=== PATIENT | male | born 1935 | race Caucasian/White ===

== ENCOUNTER 2018-06-25 23:13 | Inpatient (IN) | payer MEDICARE, OTHER ==
[2018-06-26 00:45] LABS: CKMB 3.8 ng/mL (0-6.6)
[2018-06-26 03:39] LABS: Troponin I 0.092 ng/mL (< 0.028)
[2018-06-26] MEDS ORDERED: Acetaminophen 325 MG TAB PO PRN (05:24)
[2018-06-26] MEDS ORDERED: HumaLOG 300 UNITS/3 ML VIAL SC PRN (05:24)
[2018-06-26] MEDS ORDERED: Ondansetron PF 4 MG/2 ML Vial IVP PRN (05:24)
[2018-06-26] MEDS ORDERED: hydrALAZINE 20 MG/ML VIAL SLOW IVP PRN (05:24)
[2018-06-26] MEDS ORDERED: Dextrose 50% Abboject 50 ML SYRINGE SLOW IVP PRN (05:24)
[2018-06-26] MEDS ORDERED: Ondansetron ODT 4 MG TAB PO PRN (05:24)
[2018-06-26] MEDS ORDERED: Dextrose 5% in Water 1,000 ML IV PRN (05:24)
[2018-06-26] MEDS ORDERED: Vancomycin HCl 1.25 GM in Sodium Chloride 0.9% 250 ML 250 ML IVPB SCH (06:00)
[2018-06-26] MEDS: cefTRIAXone\\ROCEPHIN 1 GM in Sodium Chloride 0.9% 100 ML IVPB SCH (06:03)
[2018-06-26] MEDS: Sodium Chloride 0.9% 1,000 ML IV SCH ×2 (06:03→21:08)
--- NOTE | 2018-06-26 07:06 | HP ---
PRIMARY CARE PHYSICIAN: Qamar Taylor MD CHIEF COMPLAINT: Altered mental status. HISTORY OF PRESENT ILLNESS: The history of present illness is very limited as the patient does not remember much about the situations, which brought him to the hospital and there is currently no family at the bedside. Mr. Waterman is an 83-year-old gentleman, who has a history of hypertension, coronary artery disease, and diabetes. He apparently was found to be altered by his daughter. The patient had called the daughter and he was confused. He apparently had told his daughter that his late was home and he was taken to the emergency room in [place] and lab work was done and it was found that his creatinine was elevated as well as his troponin and he was sent to our facility for further evaluation. Currently, the patient is back to his baseline. He is alert and oriented to person, place, and time. He says he does not really remember what happened earlier, but says that ever since his , he has been "having a hard time." He also says that he believes this is the real crux of his problem. He denies having any chest pain or shortness of breath. No fevers. No chills. No cough. No congestion. No nausea. No vomiting. He denies any abdominal pain, but he does live alone. REVIEW OF SYSTEMS: All systems were reviewed and are negative except for that mentioned in the history of present illness. PAST MEDICAL HISTORY: Significant for coronary artery disease, hypertension, and diabetes. PAST SURGICAL HISTORY: He has had bypass surgery x2 as well as 2 back surgeries. ALLERGIES: NO KNOWN DRUG ALLERGIES. SOCIAL HISTORY: He is a former smoker. He occasionally drinks alcohol. He does continue to dip snuff. He is . FAMILY HISTORY: There is a strong history of coronary artery disease in the family and brother had Hodgkin's lymphoma. CURRENT MEDICATIONS: Include; 1. Metformin 500 mg 3 times a day. 2. Ramipril 5 mg daily. 3. Hydrochlorothiazide 25 mg daily. 4. Aspirin 81 mg daily. 5. Atorvastatin 40 mg daily. 6. Carvedilol 6.25 mg once a day. 7. Isosorbide mononitrate 30 mg daily. 8. Venlafaxine 75 mg daily. 9. Tylenol as needed. PHYSICAL EXAMINATION: GENERAL: He is alert and oriented. He appears to be in no acute distress. He is well developed and well nourished. VITAL SIGNS: Blood pressure was 205/75, heart rate 78, respiratory rate of 16, and temperature is 97.4. HEENT: His pupils are equal, round, and reactive to light. Extraocular muscles are intact. His sclerae are anicteric. Throat, no erythema, no exudates. He is essentially edentulous. He only has several teeth in lower jaw. NECK: There is no adenopathy. No bruits. LUNGS: Clear to auscultation. There are no wheezing, no rales, no rhonchi. CARDIOVASCULAR: He has a normal S1 and S2. There is no S3 or S4. No murmurs, clicks, or rubs. ABDOMEN: Soft, nontender, and nondistended. Positive for bowel sounds. No rebound. No guarding. EXTREMITIES: There is no edema. No calf tenderness. No joint effusions. NEUROLOGIC: The exam is grossly nonfocal. SKIN AND INTEGUMENT: There is no significant skin changes or rash. LABORATORY DATA: His white blood cell count was elevated at 15.1, hemoglobin 14.8, hematocrit is 45.1, and platelet count is 228. Sodium 132, potassium 4.2, chloride is 101, CO2 of 17, BUN 40, creatinine 1.97, and glucose is 143. Lactic acid was 3.8. ASSESSMENT: This is an 83-year-old gentleman, who was brought to the hospital due to altered mental status. He also has an elevated white blood cell count as well as a creatinine and his lactic acid is elevated. He does not have a clear source of infection with a clear chest x-ray and his urine is essentially clear and he has no symptoms. It is possible that this may reflect volume depletion only. 1. Metabolic encephalopathy likely secondary to acute kidney injury. For this, we will place him on gentle hydration. Check his urine electrolytes and re-evaluate after hydration. 2. Possible sepsis. We will continue empiric IV antibiotics until his culture results are back. 3. History of coronary artery disease. Clinically, this appears to be stable. We will continue to trend his cardiac enzymes. I will place him on aspirin and nitrates as tolerated. 4. Diabetes mellitus. We will hold off on metformin and place him on a sliding scale only for now in the event that he needs further cardiac workup. 5. Regarding his hypertension, he will be placed on p.r.n. medications due to the acute kidney injury. We will hold the ramipril and the hydrochlorothiazide and restart these once his renal function improves. Job ID: [id number]
[2018-06-26] MEDS ORDERED: Aspirin 325 MG TAB ONE (08:41)
[2018-06-26] MEDS ORDERED: Nitroglycerin 2% Ointment 1 INCH/1 GM Packet ONE (08:41)
[2018-06-26] MEDS: Aspirin 325 mg Enteric Coated Tablet PO SCH (08:48)
[2018-06-26] MEDS: Nitroglycerin 2% Ointment 1 INCH/1 GM Packet TOP SCH ×3 (08:48→20:56)
[2018-06-26] MEDS ORDERED: Vancomycin HCl 1 GM in Premix Bag 1 BAG IVPB SCH (09:00)
[2018-06-26] MEDS: Heparin 5,000 UNITS/ML VIAL SC SCH ×3 (10:22→20:56)
--- NOTE | 2018-06-26 11:07 | PDOC.PN ---
- Subjective Encounter Start Date: 06/26/18 Encounter Start Time: 11:05 Patient seen and examined, states he feels much better now, is sad he lost his recently, states he will likely go live with his son once he's discharged. Patient seen and examined in the ER, no new issues overnight, all questions answered, no family at bedside. - Objective Additional Labs: Accuchecks 06/26/18 07:47 POC Glucose 91 Phys Exam - Physical Examination Constitutional: NAD HEENT: PERRLA, moist MMs, sclera anicteric Neck: no nodes, no JVD, supple Respiratory: no wheezing, no rales, no rhonchi Cardiovascular: RRR, no significant murmur, no rub Gastrointestinal: soft, non-tender, no distention Musculoskeletal: no edema, pulses present Dx/Plan (1) Altered mental status Code(s): R41.82 - ALTERED MENTAL STATUS, UNSPECIFIED Status: Acute (2) Elevated troponin Code(s): R74.8 - ABNORMAL LEVELS OF OTHER SERUM ENZYMES Status: Acute (3) Acute renal failure Status: Acute (4) Leukocytosis Code(s): D72.829 - ELEVATED WHITE BLOOD CELL COUNT, UNSPECIFIED Status: Acute - Plan * admit to medicine team, telemetry obs * will check infectious work up for leukocytosis * cont abx for now, likely culprit may be a combination of sadness over recent loss of his as well as a possible UTI? \ * trend troponins * possible DC in AM if work up negative, WBC going down and patient feeling well , will DC with PO abx * case and plan d/w patient at length, he understood and agreed with this plan.
[2018-06-26 12:21] VITALS: BMI 23.3
[2018-06-26 15:10] LABS: Troponin I 0.102 ng/mL (< 0.028)
[2018-06-26 15:58] LABS: Creatinine, Urine 70.17 mg/dL (63-166)
[2018-06-26] MEDS: Venlafaxine HCl 37.5 MG TAB PO SCH (20:55)
[2018-06-26 23:29] LABS: Troponin I 0.087 ng/mL (< 0.028)
[2018-06-27] MEDS: cefTRIAXone\\ROCEPHIN 1 GM in Sodium Chloride 0.9% 100 ML IVPB SCH (04:54)
[2018-06-27] MEDS: Nitroglycerin 2% Ointment 1 INCH/1 GM Packet TOP SCH ×3 (04:55→21:52)
[2018-06-27 04:57] LABS: #Eosinphils 0.2 thou/uL (0.0-0.7); #Lymphocytes 1.2 thou/uL (1.20-3.40); #Neutrophils 5.2 thou/uL (1.40-6.50); %Basophils 0.1 % (0.0-1.0); %Lymphocytes 15.5 % (21.0-51.0); %Monocytes 13.1 % (0.0-10.0); %Neutrophils 68.3 % (42.0-75.0); Hemoglobin 11.9 g/dL (14.0-18.0); Mean Corpuscular Volume 96.8 fL (78.0-98.0); Mean Platelet Volume 8.1 fL (7.4-10.4); Platelet Count 182 thou/uL (130-400); RBC Distribution Width 11.5 % (11.5-14.5); White Blood Cell (WBC) Count 7.7 thou/uL (4.8-10.8)
[2018-06-27 05:16] LABS: Anion Gap 12 mmol/L (10-20); BUN (Urea Nitrogen) 25 mg/dL (8.4-25.7); Calc. Creatinine Clearance 45 mL/min (70-130); Calcium 8.9 mg/dL (7.8-10.44); Carbon Dioxide 27 mmol/L (23-31); Cardiac Risk 3.5 (Less than 4.5); Chloride 106 mmol/L (98-107); Cholesterol 92 mg/dl (< 200 Desired); Estimated GFR-MDRD 56; Glucose 123 mg/dL (83-110); HDL Cholesterol 26 mg/dL (>60 Neg Risk); LDL Cholesterol, Calculated 52 mg/dL; Potassium 4.2 mmol/L (3.5-5.1); Sodium 141 mmol/L (136-145); Triglycerides 69 mg/dL (Less than 150)
[2018-06-27 05:18] LABS: Vancomycin, Random 13.4 ug/mL (See Comment)
[2018-06-27] MEDS: Hydrochlorothiazide 25 MG TAB PO SCH (08:43)
[2018-06-27] MEDS: Clopidogrel Bisulfate 75 MG TAB PO SCH (08:44)
[2018-06-27] MEDS: Metoprolol Tartrate 50 MG TAB PO SCH (08:44)
[2018-06-27] MEDS: Vancomycin HCl 1 GM in Premix Bag 1 BAG IVPB SCH (08:45)
[2018-06-27] MEDS: Heparin 5,000 UNITS/ML VIAL SC SCH ×3 (08:48→21:52)
[2018-06-27] MEDS: Aspirin 81 mg Enteric Coated Tablet PO SCH (08:52)
[2018-06-27] MEDS: Aspirin 325 mg Enteric Coated Tablet PO SCH (09:00)
--- NOTE | 2018-06-27 12:35 | PDOC.PN ---
- Subjective Encounter Start Date: 06/27/18 Encounter Start Time: 12:33 Patient seen and examined, family at bedside, all questions answered. - Objective Vital Signs & Weight: Vital Signs (12 hours) Temp Pulse Resp BP BP Pulse Ox 06/27/18 08:43 188/79 H 06/27/18 08:00 97.3 F L 71 20 188/79 H 95 06/27/18 05:04 87 195/84 H 06/27/18 04:25 97.2 F L 77 16 186/74 H 96 Weight Weight 154 lb 5 oz I&O: 06/26/18 06/27/18 06/28/18 06:59 06:59 06:59 Intake Total 2195 Output Total 425 Balance 1770 Result Diagrams: 06/27/18 04:25 06/27/18 04:25 Additional Labs: Accuchecks 06/27/18 06/27/18 10:35 05:28 POC Glucose 261 H 121 H Phys Exam - Physical Examination Constitutional: NAD HEENT: PERRLA, moist MMs, sclera anicteric Neck: no nodes, no JVD, supple Respiratory: no wheezing, no rales, no rhonchi sinus tach +murmur Gastrointestinal: soft, non-tender, no distention Musculoskeletal: pulses present, edema present (trace) Dx/Plan (1) Altered mental status Code(s): R41.82 - ALTERED MENTAL STATUS, UNSPECIFIED Status: Acute (2) Elevated troponin Code(s): R74.8 - ABNORMAL LEVELS OF OTHER SERUM ENZYMES Status: Acute (3) Acute renal failure Status: Acute (4) Leukocytosis Code(s): D72.829 - ELEVATED WHITE BLOOD CELL COUNT, UNSPECIFIED Status: Acute - Plan * patient doing well, slowly improving * will consult PT for now * case d/w patient's daughter who has discussed with [facility], they' re wanting to send patient to rehab over there on friday * will call PT for now * continue current medical management * DC to rehab once arrangemets made * case and plan d/w patient and daughter at length, they understand and agree with this plan.
[2018-06-27] MEDS: HumaLOG 300 UNITS/3 ML VIAL SC PRN (13:10)
[2018-06-27] MEDS: Venlafaxine HCl 37.5 MG TAB PO SCH ×2 (13:22→13:27)
[2018-06-27] MEDS: Sodium Chloride 0.9% 1,000 ML IV SCH (20:33)
[2018-06-28] MEDS: Nitroglycerin 2% Ointment 1 INCH/1 GM Packet TOP SCH ×2 (06:01→15:02)
[2018-06-28] MEDS: cefTRIAXone\\ROCEPHIN 1 GM in Sodium Chloride 0.9% 100 ML IVPB SCH (06:01)
[2018-06-28 06:43] LABS: #Basophils 0.1 thou/uL (0.0-0.2); #Eosinphils 0.3 thou/uL (0.0-0.7); #Lymphocytes 1.5 thou/uL (1.20-3.40); #Monocytes 1.1 thou/uL (0.11-0.59); %Basophils 0.6 % (0.0-1.0); %Eosinophils 3.3 % (0.0-10.0); %Lymphocytes 16.3 % (21.0-51.0); %Monocytes 12.7 % (0.0-10.0); %Neutrophils 67.2 % (42.0-75.0); Hemoglobin 11.3 g/dL (14.0-18.0); Mean Corpuscular HGB CONC 33.4 g/dL (32.0-36.0); Mean Corpuscular Hemoglobin 32.7 pg (27.0-31.0); Mean Platelet Volume 8.2 fL (7.4-10.4); Platelet Count 186 thou/uL (130-400); RBC Distribution Width 11.7 % (11.5-14.5); Red Blood Cell (RBC) Count 3.45 mill/uL (4.70-6.10); White Blood Cell (WBC) Count 8.9 thou/uL (4.8-10.8)
[2018-06-28 07:06] LABS: Anion Gap 13 mmol/L (10-20); BUN (Urea Nitrogen) 19 mg/dL (8.4-25.7); Calc. Creatinine Clearance 55 mL/min (70-130); Calcium 8.5 mg/dL (7.8-10.44); Carbon Dioxide 23 mmol/L (23-31); Chloride 106 mmol/L (98-107); Estimated GFR-MDRD 70; Glucose 126 mg/dL (83-110); Potassium 3.5 mmol/L (3.5-5.1); Sodium 138 mmol/L (136-145)
[2018-06-28] MEDS: Vancomycin HCl 1 GM in Premix Bag 1 BAG IVPB SCH (08:43)
[2018-06-28] MEDS: Heparin 5,000 UNITS/ML VIAL SC SCH ×3 (08:44→20:45)
[2018-06-28] MEDS: Sodium Chloride 0.9% 10 ML ONE (08:44)
[2018-06-28] MEDS: Aspirin 81 mg Enteric Coated Tablet PO SCH (08:45)
[2018-06-28] MEDS: Hydrochlorothiazide 25 MG TAB PO SCH (08:45)
[2018-06-28] MEDS: Clopidogrel Bisulfate 75 MG TAB PO SCH (08:45)
[2018-06-28] MEDS: Metoprolol Tartrate 50 MG TAB PO SCH (08:45)
[2018-06-28] MEDS: Aspirin 325 mg Enteric Coated Tablet PO SCH (09:15)
--- NOTE | 2018-06-28 12:21 | PDOC.PN ---
- Subjective Encounter Start Date: 06/28/18 Encounter Start Time: 12:20 Patient seen and examined, no new issues, per nursing staff patient has had 3-4 bouts of diarrhea. - Objective Vital Signs & Weight: Vital Signs (12 hours) Temp Pulse Resp BP BP Pulse Ox 06/28/18 10:05 165/72 H 06/28/18 08:33 96.8 F L 70 19 186/82 H 98 06/28/18 04:00 97.7 F 67 18 145/66 H 94 L Weight Weight 155 lb 3 oz I&O: 06/27/18 06/28/18 06/29/18 06:59 06:59 06:59 Intake Total 2195 870 Output Total 425 800 Balance 1770 70 Result Diagrams: 06/28/18 06:03 06/28/18 06:03 Additional Labs: Accuchecks 06/28/18 06/27/18 06/27/18 05:35 20:53 16:54 POC Glucose 144 H 166 H 117 H Phys Exam - Physical Examination Constitutional: NAD HEENT: PERRLA, moist MMs, sclera anicteric Neck: no nodes, no JVD, supple Respiratory: no wheezing, no rales, no rhonchi Cardiovascular: RRR, no significant murmur, no rub Gastrointestinal: soft, non-tender, no distention Musculoskeletal: pulses present, edema present Dx/Plan (1) Altered mental status Code(s): R41.82 - ALTERED MENTAL STATUS, UNSPECIFIED Status: Acute (2) Elevated troponin Code(s): R74.8 - ABNORMAL LEVELS OF OTHER SERUM ENZYMES Status: Acute (3) Acute renal failure Status: Acute (4) Leukocytosis Code(s): D72.829 - ELEVATED WHITE BLOOD CELL COUNT, UNSPECIFIED Status: Acute - Plan * DC abx for now both vanc and rocephin, no WBC no fevers, C-diff ordered for diarreha * plan for now is to DC patient to [facility] in AM, daughter works there, for rehab purposes * no other changes in plan of care otherwise * BP stable * labs in AM
[2018-06-29 05:05] LABS: #Eosinphils 0.2 thou/uL (0.0-0.7); #Lymphocytes 1.1 thou/uL (1.20-3.40); #Monocytes 0.9 thou/uL (0.11-0.59); #Neutrophils 5.7 thou/uL (1.40-6.50); %Basophils 0.5 % (0.0-1.0); %Eosinophils 2.2 % (0.0-10.0); %Lymphocytes 13.9 % (21.0-51.0); %Monocytes 11.1 % (0.0-10.0); %Neutrophils 72.4 % (42.0-75.0); Hemoglobin 11.3 g/dL (14.0-18.0); Mean Corpuscular Hemoglobin 32.4 pg (27.0-31.0); Mean Corpuscular Volume 95.3 fL (78.0-98.0); Mean Platelet Volume 8.5 fL (7.4-10.4); Platelet Count 188 thou/uL (130-400); RBC Distribution Width 11.5 % (11.5-14.5); Red Blood Cell (RBC) Count 3.49 mill/uL (4.70-6.10); White Blood Cell (WBC) Count 7.9 thou/uL (4.8-10.8)
[2018-06-29 05:30] LABS: Anion Gap 13 mmol/L (10-20); BUN (Urea Nitrogen) 15 mg/dL (8.4-25.7); Calc. Creatinine Clearance 44 mL/min (70-130); Calcium 8.9 mg/dL (7.8-10.44); Carbon Dioxide 25 mmol/L (23-31); Chloride 103 mmol/L (98-107); Estimated GFR-MDRD 55; Glucose 117 mg/dL (83-110); Potassium 3.4 mmol/L (3.5-5.1); Sodium 138 mmol/L (136-145)
[2018-06-29 08:28] LABS: Vancomycin, Trough 13.8 ug/mL
[2018-06-29] MEDS ORDERED: Ramipril 5 MG CAP PO SCH (09:00)
[2018-06-29] MEDS: Aspirin 325 mg Enteric Coated Tablet PO SCH (09:29)
[2018-06-29] MEDS: Metoprolol Tartrate 50 MG TAB PO SCH (09:29)
[2018-06-29] MEDS: Clopidogrel Bisulfate 75 MG TAB PO SCH ×2 (09:29→09:39)
[2018-06-29] MEDS: Aspirin 81 mg Enteric Coated Tablet PO SCH (09:29)
[2018-06-29] MEDS: Hydrochlorothiazide 25 MG TAB PO SCH (09:29)
[2018-06-29] MEDS: Heparin 5,000 UNITS/ML VIAL SC SCH ×3 (09:43→21:37)
[2018-06-29] MEDS: Sodium Chloride 0.9% 10 ML ONE (09:44)
--- NOTE | 2018-06-29 10:07 | PDOC.PN ---
- Subjective Encounter Start Date: 06/29/18 Encounter Start Time: 10:02 Patient seen and examined, daughter at bedside, no new issues, all questions answered. - Objective Vital Signs & Weight: Vital Signs (12 hours) Temp Pulse Resp BP BP BP Pulse Ox 06/29/18 09:28 188/79 H 06/29/18 07:47 97.5 F L 66 16 195/81 H 100 06/28/18 23:54 156/68 H Weight Weight 155 lb 9.6 oz I&O: 06/28/18 06/29/18 06/30/18 06:59 06:59 06:59 Intake Total 870 1380 Output Total 800 620 Balance 70 760 Result Diagrams: 06/29/18 04:19 06/29/18 04:19 Additional Labs: Accuchecks 06/29/18 06/28/18 06/28/18 05:38 20:37 18:12 POC Glucose 110 150 H 142 H Phys Exam - Physical Examination Constitutional: NAD HEENT: PERRLA, moist MMs, sclera anicteric Neck: no nodes, no JVD, supple Respiratory: no wheezing, no rales, no rhonchi Cardiovascular: RRR, no significant murmur, no rub Gastrointestinal: soft, non-tender, no distention Musculoskeletal: no edema, pulses present Dx/Plan (1) Altered mental status Code(s): R41.82 - ALTERED MENTAL STATUS, UNSPECIFIED Status: Acute (2) Elevated troponin Code(s): R74.8 - ABNORMAL LEVELS OF OTHER SERUM ENZYMES Status: Acute (3) Acute renal failure Status: Acute (4) Leukocytosis Code(s): D72.829 - ELEVATED WHITE BLOOD CELL COUNT, UNSPECIFIED Status: Acute - Plan * C-diff collection pending, unlikely but will check * med rec done again as his daughter brought in his current list. DC plavix, DC asa 325mg * abx DC yesterday, patient clinically better and improving * CM consulted to help transfer to [facility], paperwork pending, daughter works there and states that [facility] has agreed to accept, will await paperwork for now * DC plans once transfer done in the next 24 hours * labs in AM * case and plan d/w patient and daughter at length, they understand and agree with this plan
--- NOTE | 2018-06-29 12:37 | CT ---
FCT head noncontrast HISTORY: Fall. Patient on blood thinners. COMPARISON: 06/25/2018. FINDINGS: There is no evidence of acute intracranial hemorrhage or infarct. Diffuse cortical atrophy and chronic ischemic small vessel disease are similar in appearance to the prior study. There is no m ass effect or shift of midline structures. Visualized paranasal sinuses remain well aerated. IMPRESSION: Chronic type findings are stable. No acute intracranial abnormalities are demonstrated.
--- NOTE | 2018-06-29 14:06 | PQF ---
DATE: 06-29-18 ATTN: DR. MAURILIO MITCHELL Please exercise your independent, professional judgment in responding to the clarification form. Clinical indicators are provided on the bottom of this form for your review Please check appropriate box(s) to clarify if the following diagnosis has been ruled in or ruled out: SEPSIS [ x ] Ruled in diagnosis [ x ] Continue to treat [ ] Resolved [ ] Ruled out diagnosis [ ] Other diagnosis [ ] Unable to determine In addition, please specify: Present on Admission (POA): [ x ] Yes [ ] No [ ] Unable to determine For continuity of documentation, please document condition throughout progress notes and discharge summary. Thank You. CLINICAL INDICATORS - SIGNS / SYMPTOMS / LABS ER DX: AMS, SEPSIS OF UNK ORIGIN H&P 06-26-18: POSSIBLE SEPSIS, METABOLIC ENCEPHALOPATHY LIKELY SECONDARY TO JEAN-PIERRE PN DR. MITCHELL 06-29-18: ACUTE AMS, ELEVATED TROPONIN, ACUTE RENAL FAILURE, LEUKOCYTOSIS RISKS: H&P 06-26-18: POSSIBLE SEPSIS, METABOLIC ENCEPHALOPATHY LIKELY SECONDARY TO JEAN-PIERRE PN DR. MITCHELL 06-29-18: ACUTE AMS, ELEVATED TROPONIN, ACUTE RENAL FAILURE, LEUKOCYTOSIS TREATMENTS: MAR: 06-26-18: ROCEPHIN IV, VANCOMYCIN (This form is maintained as a part of the permanent medical record) 2014 [employer], [employer] All Rights Reserved [email or web address] Office: [phone] CJ
--- NOTE | 2018-06-29 14:19 | PQF ---
DATE: 06-29-18 ATTN : DR. MAURILIO MITCHELL Please exercise your independent, professional judgment in responding to the clarification form. Clinical indicators are provided on the bottom of this form for your review Please check appropriate box(s): [ x ] Encephalopathy: Type: [ x ] Acute [ ] Subacute [ ] Chronic Etiology: [ ] Hypertensive [ ] Metabolic [ ] Toxic [ ] Septic [ ] Other (please specify) [ ] Transient Alteration of Awareness [ ] Other diagnosis [ ] Unable to determine In addition, please specify: Present on Admission (POA): [ x ] Yes [ ] No [ ] Unable to determine For continuity of documentation, please document condition throughout progress notes and discharge summary. Thank You. CLINICAL INDICATORS - SIGNS / SYMPTOMS / LABS ER DX: AMS, SEPSIS OF UNK ORIGIN H&P: 06-26-18: METABOLIC ENCEPHALOPATHY LIKELY SECONDARY TO JEAN-PIERRE, POSSIBLE SEPSIS RISK FACTORS H&P 06-26-18: REGARDING HIS HTN, HE WILL BE PLACED ON PRN MEDS DUE TO THE JEAN-PIERRE H&P: 06-26-18: METABOLIC ENCEPHALOPATHY LIKELY SECONDARY TO JEAN-PIERRE, POSSIBLE SEPSIS TREATMENTS: 06-26-18: ROCEPHIN IV, VANCOMYCIN IV (This form is maintained as a part of the permanent medical record) 2014 [employer], [employer]. All Rights Reserved [email or web address] Office: [phone] CJ
--- NOTE | 2018-06-29 14:32 | PQF ---
DATE: 06-29-18 ATTN: DR. MAURILIO MITCHELL Please exercise your independent, professional judgment in responding to the clarification form. Clinical indicators are provided on the bottom of this form for your review Please check appropriate box(s): [ ] Demand Ischemia [ x ] NSTEMI TYPE II [ ] NSTEMI [ ] Unable to determine In addition, please specify: Present on Admission (POA): [ x ] Yes [ ] No [ ] Unable to determine For continuity of documentation, please document condition throughout progress notes and discharge summary. Thank You. CLINICAL INDICATORS - SIGNS / SYMPTOMS/ LABS are present in the medical record: TROPONIN: 06-25-18: 0.089 06-26-18: 0.092 06-26-18: 0.102 06-26-18: 0.087 ER: [place] [facility] [place], SEPSIS AND INDETERMINATE TROPS, HX OF CAD, MYOCARDIAL INFARCTION, DIABETES, HYPERLIPIDEMIA, HTN, QUAD BYPASS X [address] MITCHELL 06-29-18: AMS, ACUTE ELEVATED TROPONIN, ACUTE RENAL FAILURE , LEUKOCYTOSIS RISK FACTORS: ER: TRANSFER FROM [facility] [place] FOR [place]MS, SEPSIS AND INDETERMINATE TROPS, HX OF CAD , MYOCARDIAL INFARCTION, DIABETES, HYPERLIPIDEMIA, HTN, QUAD BYPASS X 2 TREATMENT: SERIES OF LABS H&P 06-26-18: I WILL PLACE HIM ON ASA AND NITRATED TOLERATED (This form is maintained as a part of the permanent medical record) 2014 [employer], [employer]. All Rights Reserved [email or web address] Office: [phone] [facility]OSPITALMatheus
[2018-06-30 05:46] LABS: #Basophils 0.1 thou/uL (0.0-0.2); #Eosinphils 0.2 thou/uL (0.0-0.7); #Lymphocytes 1.2 thou/uL (1.20-3.40); #Monocytes 0.8 thou/uL (0.11-0.59); #Neutrophils 4.8 thou/uL (1.40-6.50); %Basophils 0.8 % (0.0-1.0); %Eosinophils 3.2 % (0.0-10.0); %Lymphocytes 16.6 % (21.0-51.0); %Monocytes 11.7 % (0.0-10.0); %Neutrophils 67.7 % (42.0-75.0); Hemoglobin 11.5 g/dL (14.0-18.0); Mean Corpuscular HGB CONC 33.1 g/dL (32.0-36.0); Mean Corpuscular Hemoglobin 32.3 pg (27.0-31.0); Mean Corpuscular Volume 97.7 fL (78.0-98.0); Mean Platelet Volume 7.9 fL (7.4-10.4); Platelet Count 204 thou/uL (130-400); RBC Distribution Width 11.8 % (11.5-14.5); Red Blood Cell (RBC) Count 3.55 mill/uL (4.70-6.10); White Blood Cell (WBC) Count 7.1 thou/uL (4.8-10.8)
[2018-06-30 06:01] LABS: Anion Gap 15 mmol/L (10-20); BUN (Urea Nitrogen) 15 mg/dL (8.4-25.7); Calc. Creatinine Clearance 53 mL/min (70-130); Carbon Dioxide 23 mmol/L (23-31); Chloride 104 mmol/L (98-107); Estimated GFR-MDRD 69; Glucose 112 mg/dL (83-110); Potassium 3.8 mmol/L (3.5-5.1); Sodium 138 mmol/L (136-145)
[2018-06-30] MEDS: Amlodipine 5 MG TAB PO SCH (09:28)
[2018-06-30] MEDS: Hydrochlorothiazide 25 MG TAB PO SCH (09:28)
[2018-06-30] MEDS: Metoprolol Tartrate 50 MG TAB PO SCH (09:28)
[2018-06-30] MEDS: Heparin 5,000 UNITS/ML VIAL SC SCH ×3 (09:28→22:25)
[2018-06-30] MEDS: Aspirin 81 mg Enteric Coated Tablet PO SCH (09:28)
[2018-06-30] MEDS: Ramipril 5 MG CAP PO SCH ×2 (09:29→22:25)
--- NOTE | 2018-06-30 09:48 | PDOC.PN ---
- Subjective Encounter Start Date: 06/30/18 Encounter Start Time: 09:47 Subjective: feeling better today. No new problem -: Awaiting placement - Objective Vital Signs & Weight: Vital Signs (12 hours) Temp Pulse Resp BP Pulse Ox 06/30/18 07:30 97.4 F L 66 13 174/74 H 95 06/30/18 04:15 97.7 F 72 20 161/68 H 100 Weight Weight 152 lb 4.8 oz I&O: 06/29/18 06/30/18 07/01/18 06:59 06:59 06:59 Intake Total 1380 660 Output Total 620 1450 Balance 760 -790 Result Diagrams: 06/30/18 05:15 06/30/18 05:15 Additional Labs: Accuchecks 06/30/18 06/29/18 06/29/18 05:43 20:55 16:44 POC Glucose 115 H 219 H 120 H 06/29/18 06/29/18 12:19 10:57 POC Glucose 94 128 H Phys Exam - Physical Examination Constitutional: NAD HEENT: PERRLA, moist MMs Neck: no JVD, supple Respiratory: no wheezing, no rales, no rhonchi, clear to auscultation bilateral Cardiovascular: RRR Gastrointestinal: soft, non-tender, no distention Musculoskeletal: no edema, pulses present Neurological: non-focal awake and conversational. Moves all limbs Psychiatric: A&O x 3 Dx/Plan (1) HTN (hypertension) Code(s): I10 - ESSENTIAL (PRIMARY) HYPERTENSION Status: Acute Comment: Uncontrolled. (2) JEAN-PIERRE (acute kidney injury) Code(s): N17.9 - ACUTE KIDNEY FAILURE, UNSPECIFIED Status: Acute (3) Acute metabolic encephalopathy Code(s): G93.41 - METABOLIC ENCEPHALOPATHY Status: Acute (4) Dehydration with hyponatremia Code(s): E87.1 - HYPO-OSMOLALITY AND HYPONATREMIA Status: Acute (5) Diabetes mellitus Code(s): E11.9 - TYPE 2 DIABETES MELLITUS WITHOUT COMPLICATIONS Status: Acute (6) Physical deconditioning Code(s): R53.81 - OTHER MALAISE Status: Acute (7) Elevated troponin Code(s): R74.8 - ABNORMAL LEVELS OF OTHER SERUM ENZYMES Status: Acute - Plan Start amlodipine.Monitor BP with a vieew to increase antihypertensives. -: Continue PT/OT -: Awaiting placement -: Monitor renal function in the am * .
[2018-06-30] MEDS: HumaLOG 300 UNITS/3 ML VIAL SC PRN (12:03)
[2018-07-01] MEDS: Amlodipine 5 MG TAB PO SCH (09:49)
[2018-07-01] MEDS: Heparin 5,000 UNITS/ML VIAL SC SCH ×3 (09:50→20:28)
[2018-07-01] MEDS: Aspirin 81 mg Enteric Coated Tablet PO SCH (09:50)
[2018-07-01] MEDS: Metoprolol Tartrate 50 MG TAB PO SCH (09:51)
[2018-07-01] MEDS: Hydrochlorothiazide 25 MG TAB PO SCH (09:51)
[2018-07-01] MEDS: Ramipril 5 MG CAP PO SCH ×2 (09:51→20:28)
--- NOTE | 2018-07-01 11:23 | PDOC.PN ---
- Subjective Encounter Start Date: 07/01/18 Encounter Start Time: 11:21 Subjective: Hearly fell yesterday when he tried to go to rest room alone. -: Now has a sitter. - Objective Vital Signs & Weight: Vital Signs (12 hours) Temp Pulse Pulse Resp BP BP BP 07/01/18 09:49 74 07/01/18 09:10 67 147/65 H 07/01/18 06:56 97.8 F 66 16 166/72 H 07/01/18 04:05 97.2 F L 67 16 163/71 H 07/01/18 00:00 63 143/67 H Pulse Ox 07/01/18 09:49 07/01/18 09:10 07/01/18 06:56 97 07/01/18 04:05 98 07/01/18 00:00 99 Weight Weight 151 lb 4.8 oz I&O: 06/30/18 07/01/18 07/02/18 06:59 06:59 06:59 Intake Total 660 490 Output Total 1450 500 Balance -790 -10 Result Diagrams: 06/30/18 05:15 06/30/18 05:15 Additional Labs: Accuchecks 07/01/18 06/30/18 06/30/18 06:01 20:07 16:50 POC Glucose 129 H 197 H 106 Phys Exam - Physical Examination Constitutional: NAD HEENT: PERRLA Neck: no JVD, supple Respiratory: no wheezing, no rhonchi, clear to auscultation bilateral Cardiovascular: RRR, no significant murmur Gastrointestinal: soft, non-tender, no distention, positive bowel sounds Musculoskeletal: no edema, pulses present Neurological: non-focal, moves all 4 limbs Psychiatric: A&O x 3 Dx/Plan (1) HTN (hypertension) Code(s): I10 - ESSENTIAL (PRIMARY) HYPERTENSION Status: Acute Comment: Uncontrolled. (2) JEAN-PIERRE (acute kidney injury) Code(s): N17.9 - ACUTE KIDNEY FAILURE, UNSPECIFIED Status: Acute (3) Acute metabolic encephalopathy Code(s): G93.41 - METABOLIC ENCEPHALOPATHY Status: Acute (4) Dehydration with hyponatremia Code(s): E87.1 - HYPO-OSMOLALITY AND HYPONATREMIA Status: Acute (5) Diabetes mellitus Code(s): E11.9 - TYPE 2 DIABETES MELLITUS WITHOUT COMPLICATIONS Status: Acute (6) Physical deconditioning Code(s): R53.81 - OTHER MALAISE Status: Acute (7) Elevated troponin Code(s): R74.8 - ABNORMAL LEVELS OF OTHER SERUM ENZYMES Status: Acute - Plan DC sitter and start bed alarm -: For discharge once placement concluded -: Continue other treatments -: Pt/OT to continue. * .
--- NOTE | 2018-07-01 17:06 | DIS ---
DATE OF ADMISSION: 06/26/2018 DATE OF DISCHARGE: 07/01/2018 DISCHARGE DIAGNOSES: 1. Acute metabolic encephalopathy. 2. Acute kidney injury. 3. Dehydration with hyponatremia. 4. Uncontrolled hypertension. 5. Type 2 diabetes mellitus. 6. Physical deconditioning. 7. Frequent falls. 8. Elevated troponin. 9. Demand ischemia of the myocardium. CONSULTS: None. HOSPITAL COURSE: An 83-year-old male admitted due to acute mental status change. Symptoms soon improved such that the patient was oriented x3. He, however, was found to be weak. Further evaluation revealed acute kidney injury with creatinine of 1.97. The patient with elevated white count and tachycardia, was thought to have acute infection. Hence, initially was started on antibiotics, which were later discontinued when there was no obvious source of infection. The tachycardia and white count were felt to be due to dehydration. The patient also was found to have hyponatremia. He was treated with IV fluids with improvement of renal function and resolution of leukocytosis. The patient initially had his antihypertensives held, but blood pressure later appreciated such that even with regular home medications, BP was not adequately controlled, hence amlodipine was started. Hospital course was complicated by a fall, which was unwitnessed. The patient was evaluated with CT scan, which was unremarkable for acute pathology. He remained stable and was found to have physical deconditioning. He received PT and was subsequently discharged to swing bed for further restorative therapy. CONDITION AT DISCHARGE: Improved and stable. DISCHARGE MEDICATIONS: 1. Acetaminophen 650 mg q.4 hours p.r.n. 2. Aspirin 81 mg p.o. daily. 3. Lipitor 40 mg q.p.m. 4. Hydrochlorothiazide 25 mg p.o. daily. 5. Isosorbide mononitrate 30 mg p.o. daily. 6. Metformin 500 mg p.o. b.i.d. 7. Venlafaxine 75 mg p.o. b.i.d. 8. Amlodipine 10 mg p.o. b.i.d. 9. Metoprolol 50 mg p.o. b.i.d. 10. Coreg 6.25 b.i.d. 11. Zofran ODT 4 mg q.6 hours p.r.n. 12. Ramipril 5 mg p.o. b.i.d. TIME SPENT: Discharge took more than 36 minutes. Job ID: [id number]
[2018-07-01 19:57] VITALS: BP 141/66; TEMP 97.2
== END 2018-07-01 21:06 | DRG 871 ==
LOC: ERS 23:13 → ERHOLD 06-26 01:13 → 2NO 06-26 11:25
PROVIDERS: ADMIT Internal Medicine; ATTEND Internal Medicine
DX: A41.9 Sepsis, unspecified organism (principal); G93.41 Metabolic encephalopathy; I21.A1 Myocardial infarction type 2; N17.9 Acute kidney failure, unspecified; E87.1 Hypo-osmolality and hyponatremia; I10 Essential (primary) hypertension; I25.10 Atherosclerotic heart disease of native coronary artery without angina pectoris; E11.9 Type 2 diabetes mellitus without complications; E86.0 Dehydration; R29.6 Repeated falls; Z79.84 Long term (current) use of oral hypoglycemic drugs; Z79.82 Long term (current) use of aspirin; Z79.899 Other long term (current) drug therapy
CPT/HCPCS: 36415; 36416; 70450; 80048; 80061; 80202; 82553; 82570; 84300; 84484; 85025; 87324; 87449; 93005; 94760; J0360; J0696; J1644; J3370; J7050

== ENCOUNTER 2018-07-18 14:31 | Emergency (ER) | payer MEDICARE ==
[2018-07-18 15:06] LABS: #Eosinphils 0.2 thou/uL (0.0-0.7); #Lymphocytes 1.3 thou/uL (1.20-3.40); #Monocytes 0.9 thou/uL (0.11-0.59); #Neutrophils 9.2 thou/uL (1.40-6.50); %Basophils 0.4 % (0.0-1.0); %Eosinophils 1.3 % (0.0-10.0); %Lymphocytes 10.9 % (21.0-51.0); %Neutrophils 79.3 % (42.0-75.0); Hemoglobin 12.2 g/dL (14.0-18.0); Mean Corpuscular HGB CONC 33.2 g/dL (32.0-36.0); Mean Corpuscular Hemoglobin 31.9 pg (27.0-31.0); Mean Corpuscular Volume 95.9 fL (78.0-98.0); Mean Platelet Volume 7.1 fL (7.4-10.4); Platelet Count 342 thou/uL (130-400); RBC Distribution Width 12.2 % (11.5-14.5); Red Blood Cell (RBC) Count 3.83 mill/uL (4.70-6.10); White Blood Cell (WBC) Count 11.6 thou/uL (4.8-10.8)
[2018-07-18 15:07] LABS: Bilirubin Negative (Negative); Blood, Urine Negative (Negative); Clarity CLEAR (Clear); Glucose, Urine (Dipstick) Negative (Negative); Leukocyte Negative (Negative); Nitrite Negative (Negative); Protein, Urine (Dipstick) Negative (Neg-Trace); Specific Gravity, Urine 1.009 (1.002-1.036); Urobilinogen 0.2 mg/dL (0.2-1.0)
[2018-07-18 15:27] LABS: ALT (SGPT) 24 U/L (8-55); AST (SGOT) 24 U/L (5-34); Albumin 4.2 g/dL (3.4-4.8); Alkaline Phosphatase 69 U/L (40-150); Anion Gap 15 mmol/L (10-20); BUN (Urea Nitrogen) 27 mg/dL (8.4-25.7); Bilirubin, Total 0.5 mg/dL (0.2-1.2); Calc. Creatinine Clearance 0 mL/min (70-130); Calcium 9.9 mg/dL (7.8-10.44); Carbon Dioxide 24 mmol/L (23-31); Chloride 101 mmol/L (98-107); Estimated GFR-MDRD 47; Glucose 130 mg/dL (83-110); Potassium 5.3 mmol/L (3.5-5.1); Protein, Total 7.2 g/dL (5.8-8.1); Sodium 135 mmol/L (136-145)
[2018-07-18 15:54] LABS: CKMB 4.5 ng/mL (0-6.6)
--- NOTE | 2018-07-18 16:37 | RAD ---
PORTABLE CHEST ONE VIEW: 07/18/18 at 3:53 p.m. HISTORY: Generalized weakness. FINDINGS: Comparison made to exam of 06/25/18. Changes of median sternotomy again seen. The heart size is normal. No lobar consolidation, pneumothor aces or pleural effusions are seen. The patient is rotated. There is a concentric collection of air i n the upper mediastinum likely within the trachea. This study was interpreted in consultation with Dr. Mil Beaulieu who concurs. POS: [facility]
[2018-07-18 18:59] LABS: Troponin I 0.034 ng/mL (< 0.028)
== END 2018-07-18 19:18 | disposition home or self-care (01) ==
LOC: ERS 14:31
DX: R53.1 Weakness (principal); R35.0 Frequency of micturition; I25.10 Atherosclerotic heart disease of native coronary artery without angina pectoris; I25.2 Old myocardial infarction; E11.9 Type 2 diabetes mellitus without complications; E78.5 Hyperlipidemia, unspecified; I10 Essential (primary) hypertension; F32.9 Major depressive disorder, single episode, unspecified; F17.220 Nicotine dependence, chewing tobacco, uncomplicated
CPT/HCPCS: 36415; 71045; 80053; 81003; 82553; 84484; 85025; 93005

== ENCOUNTER 2018-08-07 12:44 | Outpatient (CLI) | payer MEDICARE ==
--- NOTE | 2018-08-07 14:24 | CT ---
CT BRAIN WITHOUT CONTRAST: HISTORY:Dementia, fall and trauma to the head COMPARISON:06/29/2018 FINDINGS: There are foci of decreased attenuation in the periventricular white matter, consistent with chronic small vessel ischemic disease. Changes of diffuse cortical atrophy are again seen. No evidence of acute infarct, hemorrhage, midline shift or abnormal extra-axial fluid collections is seen. The ventricular size is appropriate and the basilar cisterns are patent. The bony calvarium is intact. The mastoid air cells are well aerated. There is mild mucosal disease in the paranasal sinuses. IMPRESSION: No CT evidence of acute intracranial process.
== END 2018-08-07 12:45 | disposition home or self-care (01) ==
LOC: BICCT 12:44
PROVIDERS: ATTEND Internal Medicine
DX: F03.90 Unspecified dementia, unspecified severity, without behavioral disturbance, psychotic disturbance, mood disturbance, and anxiety (principal)
CPT/HCPCS: 70450

== ENCOUNTER 2020-11-18 17:54 | Inpatient (IN) | payer MEDICARE, MEDICAID ==
[2020-11-18 18:58] LABS: Mean Corpuscular HGB CONC 34.8 g/dL (32.0-36.0); Mean Corpuscular Hemoglobin 31.2 pg (27.0-31.0); Mean Corpuscular Volume 89.7 fL (78.0-98.0); Mean Platelet Volume 8.1 fL (7.4-10.4); Platelet Count 248 thou/uL (130-400); RBC Distribution Width 12.3 % (11.5-14.5); Red Blood Cell (RBC) Count 3.52 mill/uL (4.70-6.10); White Blood Cell (WBC) Count 21.8 thou/uL (4.8-10.8)
[2020-11-18 19:15] LABS: ALT (SGPT) 27 U/L (8-55); AST (SGOT) 50 U/L (5-34); Albumin 3.5 g/dL (3.4-4.8); Alkaline Phosphatase 59 U/L (40-110); Anion Gap 23 mmol/L (10-20); BUN (Urea Nitrogen) 98 mg/dL (8.4-25.7); Bilirubin, Total 0.4 mg/dL (0.2-1.2); Calc. Creatinine Clearance 0 mL/min (70-130); Calcium 8.3 mg/dL (7.8-10.44); Carbon Dioxide 11 mmol/L (23-31); Chloride 107 mmol/L (98-107); Globulin 3.5 g/dL (2.4-3.5); Glucose 219 mg/dL (83-110); Potassium 5.2 mmol/L (3.5-5.1); Sodium 136 mmol/L (136-145)
[2020-11-18 19:23] LABS: Band 30 % (5-11); Lymphocytes 3 % (21-51); MDiff Complete? YES; Monocytes 6 % (0-10); Neutrophil 61 % (42-75); Platelet Morphology Comment Appears Adequate; RBC Morphology Normal
[2020-11-18 19:42] LABS: CKMB 3.7 ng/mL (0-6.6)
[2020-11-18] MEDS ORDERED: cefTRIAXone\\ROCEPHIN 2 GM VIAL ONE (19:51)
[2020-11-18] MEDS ORDERED: Acetaminophen 325 MG TAB ONE (19:51)
[2020-11-18] MEDS ORDERED: Aspirin Chewable 81 MG TAB ONE (19:51)
[2020-11-18] MEDS ORDERED: Azithromycin 500 MG VIAL ONE (19:51)
[2020-11-18] MEDS ORDERED: Aspirin 300 MG Suppository ONE (20:18)
[2020-11-18] MEDS ORDERED: Acetaminophen 650 MG Suppository ONE (20:18)
[2020-11-18] MEDS ORDERED: Acetaminophen 650 MG Suppository PR PRN (20:50)
[2020-11-18] MEDS ORDERED: Acetaminophen 325 MG TAB PO PRN (20:50)
[2020-11-18] MEDS ORDERED: Ondansetron ODT 4 MG TAB PO PRN (20:50)
[2020-11-18] MEDS ORDERED: Ondansetron PF 4 MG/2 ML Vial IVP PRN (20:50)
[2020-11-18] MEDS ORDERED: Heparin 5,000 UNITS/ML VIAL SC SCH (21:00)
[2020-11-18] MEDS ORDERED: Dexamethasone 4 mg/ml Vial SLOW IVP SCH (21:00)
[2020-11-18] MEDS ORDERED: Dexamethasone 10 MG/ML VIAL ONE (21:59)
[2020-11-18 22:13] LABS: Troponin I 0.137 ng/mL (< 0.028)
[2020-11-18] MEDS ORDERED: Enoxaparin Sodium 80 MG/0.8 ML SYRINGE ONE (22:33)
[2020-11-18] MEDS ORDERED: Rocuronium Bromide 10 MG/ML (10ML VIAL) ONE (22:59)
[2020-11-18] MEDS ORDERED: hydrALAZINE 20 MG/ML VIAL SLOW IVP PRN (23:15)
[2020-11-18] MEDS ORDERED: Dextrose 50% Abboject 50 ML SYRINGE SLOW IVP PRN (23:19)
[2020-11-18] MEDS ORDERED: HumaLOG 300 UNITS/3 ML VIAL SC PRN (23:19)
[2020-11-18] MEDS ORDERED: Dextrose 5% in Water 1,000 ML IV PRN (23:19)
[2020-11-18] MEDS ORDERED: Fentanyl 100 MCG/2 ML VIAL ONE ×2 (23:36→23:56)
[2020-11-18] MEDS ORDERED: Ventilator Sedation Protocol 1 EACH FS SCH (23:45)
[2020-11-18 23:47] LABS: Actual Bicarbonate (HCO3a) 16.4 mEq/L (22-28); Analyzer IN Cardio ER; Base Excess (BEa) -9.8 mEq/L (-2.0 to +3.0); CO2 Tension 36.9 mmHg (35.0-45.0); Carboxyhemoglobin (COHb) 0.3 gm% (0.0-3.0); Hemoglobin (Hb) 11.3 g/dL (14.0-18.0); O2 Tension (PaO2), arterial 67.1 mmHg (> 60.0); pH, Arterial 7.27 (7.35-7.45)
[2020-11-18 23:48] LABS: ALV-art Gradient 599.775 mmHg (0-20); Peep/CPAP 7.5 cmH2O; Puncture Site RRA
[2020-11-19] MEDS ORDERED: DISCONTINUE PREVIOUS NARCOTIC PAIN MEDICATIONS AND BENZODIAZEPINES FS SCH (00:15)
[2020-11-19] MEDS ORDERED: Morphine 2 MG/ML VIAL SLOW IVP PRN ×2 (00:15→09:40)
[2020-11-19] MEDS ORDERED: Fentanyl BOLUS 250 ML IVPB PRN (00:15)
[2020-11-19] MEDS ORDERED: Propofol 1,000 MG/100 ML VIAL IV PRN (00:15)
[2020-11-19] MEDS ORDERED: Propofol BOLUS 1,000 MG/100 ML VIAL IV PRN (00:15)
[2020-11-19] MEDS ORDERED: Fentanyl CADD 100 ML IV SCH (00:15)
[2020-11-19 00:36] LABS: Anion Gap 17 mmol/L (10-20); BUN (Urea Nitrogen) 88 mg/dL (8.4-25.7); Calc. Creatinine Clearance 0 mL/min (70-130); Carbon Dioxide 16 mmol/L (23-31); Chloride 109 mmol/L (98-107); Glucose 246 mg/dL (83-110); Potassium 4.7 mmol/L (3.5-5.1); Sodium 137 mmol/L (136-145)
[2020-11-19] MEDS ORDERED: Fentanyl 100 MCG/2 ML VIAL ONE (00:56)
[2020-11-19 01:10] LABS: Bilirubin Negative (Negative); Blood, Urine Trace (Negative); Clarity Clear (Clear); Glucose, Urine (Dipstick) Normal (Negative); Ketone, Urine Negative (Negative); Leukocyte Negative Leu/uL (Negative); Nitrite Negative (Negative); Protein, Urine (Dipstick) 30 mg/dL (Neg-Trace); RBC/HPF 0-3 HPF (0-3); Specific Gravity, Urine 1.014 (1.002-1.036); Squamous Epithelial None Seen HPF (0-3); Urobilinogen Normal mg/dL (Less than 2); WBC/HPF 0-3 HPF (0-3)
[2020-11-19 01:11] LABS: Bacteria/HPF 1+ HPF (None Seen); Urine Culture Reflex Yes Yes
[2020-11-19 01:21] LABS: Hemoglobin 10.7 g/dL (14.0-18.0)
[2020-11-19 01:44] LABS: Troponin I 0.108 ng/mL (< 0.028)
[2020-11-19 02:01] VITALS: BMI 25.2
[2020-11-19] MEDS: HumaLOG 300 UNITS/3 ML VIAL SC PRN ×2 (02:31→04:15)
[2020-11-19 03:17] LABS: Lactic Acid 2.3 mmol/L (0.5-2.2)
[2020-11-19 03:27] LABS: Anion Gap 19 mmol/L (10-20); BUN (Urea Nitrogen) 86 mg/dL (8.4-25.7); Calc. Creatinine Clearance 25 mL/min (70-130); Calcium 8.1 mg/dL (7.8-10.44); Carbon Dioxide 15 mmol/L (23-31); Chloride 108 mmol/L (98-107); Glucose 307 mg/dL (83-110); Potassium 5.3 mmol/L (3.5-5.1); Sodium 137 mmol/L (136-145)
[2020-11-19 04:41] LABS: Hemoglobin 11.3 g/dL (14.0-18.0); Mean Corpuscular Hemoglobin 30.8 pg (27.0-31.0); Mean Corpuscular Volume 90.6 fL (78.0-98.0); Mean Platelet Volume 8.6 fL (7.4-10.4); Platelet Count 232 thou/uL (130-400); RBC Distribution Width 12.5 % (11.5-14.5); Red Blood Cell (RBC) Count 3.68 mill/uL (4.70-6.10)
[2020-11-19 04:47] LABS: Band 29 % (5-11); Lymphocytes 2 % (21-51); MDiff Complete? YES; Neutrophil 69 % (42-75)
[2020-11-19] MEDS ORDERED: Sodium Bicarbonate 150 MEQ in Sterile Water Injection 1,000 ML IV SCH (06:30)
[2020-11-19] MEDS ORDERED: Sodium Bicarbonate 150 MEQ in Dextrose 5% in Water 1,000 ML IV SCH (06:30)
[2020-11-19 07:29] VITALS: TEMP 97.7
[2020-11-19 08:18] LABS: Actual Bicarbonate (HCO3a) 17.7 mEq/L (22-28); Base Excess (BEa) -5.7 mEq/L (-2.0 to +3.0); CO2 Tension 27.4 mmHg (35.0-45.0); Calcium, Ionized (arterial) 1.06 mmol/L (1.12-1.30); Carboxyhemoglobin (COHb) 0.3 gm% (0.0-3.0); Hemoglobin (Hb) 9.4 g/dL (14.0-18.0); O2 Tension (PaO2), arterial 71.6 mmHg (> 60.0); Potassium - ABG Lab 4.35 mmol/L (3.70-5.30); pH, Arterial 7.43 (7.35-7.45)
[2020-11-19 08:21] LABS: Puncture Site LRA
[2020-11-19] MEDS ORDERED: Enoxaparin Sodium 40 MG/0.4 ML SYRINGE SC SCH (09:00)
[2020-11-19] MEDS ORDERED: Dexamethasone 4 mg/ml Vial SLOW IVP SCH (09:00)
[2020-11-19] MEDS: Lorazepam 2 MG/ML VIAL SLOW IVP PRN ×2 (09:39→09:50)
[2020-11-19 11:00] VITALS: BP 118/50
[2020-11-19 12:14] LABS: Creatinine, Urine 34.98 mg/dL (63-166)
== END 2020-11-19 12:11 | disposition expired | DRG 871 ==
LOC: ERS 17:54 → ERHOLD 20:40 → CCU 11-19 01:15
PROVIDERS: ADMIT Student in an Organized Health Care Education/Training Program; ATTEND Student in an Organized Health Care Education/Training Program
PROC: 0BH17EZ Insertion of Endotracheal Airway into Trachea, Via Natural or Artificial Opening (ICD-10-PCS; principal; 2020-11-18)
PROC: 5A1935Z Respiratory Ventilation, Less than 24 Consecutive Hours (ICD-10-PCS; 2020-11-18)
PROC: 8E0ZXY6 Isolation (ICD-10-PCS; 2020-11-18)
DX: A41.89 Other specified sepsis (principal); U07.1 COVID-19; J12.82 Pneumonia due to coronavirus disease 2019; Z51.5 Encounter for palliative care; Z66 Do not resuscitate; G93.41 Metabolic encephalopathy; J80 Acute respiratory distress syndrome; N17.9 Acute kidney failure, unspecified; E87.2 Acidosis; I13.0 Hypertensive heart and chronic kidney disease with heart failure and stage 1 through stage 4 chronic kidney disease, or unspecified chronic kidney disease; R65.20 Severe sepsis without septic shock; D63.1 Anemia in chronic kidney disease; F03.90 Unspecified dementia, unspecified severity, without behavioral disturbance, psychotic disturbance, mood disturbance, and anxiety; I50.9 Heart failure, unspecified; E11.22 Type 2 diabetes mellitus with diabetic chronic kidney disease; E11.40 Type 2 diabetes mellitus with diabetic neuropathy, unspecified; E78.5 Hyperlipidemia, unspecified; E87.5 Hyperkalemia; F17.220 Nicotine dependence, chewing tobacco, uncomplicated; I25.5 Ischemic cardiomyopathy; R79.89 Other specified abnormal findings of blood chemistry; N18.2 Chronic kidney disease, stage 2 (mild); I25.2 Old myocardial infarction; Z95.1 Presence of aortocoronary bypass graft; Z79.82 Long term (current) use of aspirin; Z98.890 Other specified postprocedural states; Z79.84 Long term (current) use of oral hypoglycemic drugs; Z79.899 Other long term (current) drug therapy
CPT/HCPCS: 31500; 36415; 36416; 36600; 51702; 71045; 80053; 81001; 82274; 82553; 82570; 82728; 82805; 83605; 83880; 84145; 84156; 84300; 84484; 84540; 85025; 85379; 86140; 87040; 87086; 93005; 93010; 94002; 94003; 94640; 96365; 96367; 96372; 96375; 96376; A4217; J0456; J0696; J1100; J1650; J1815; J2060; J2270; J2704; J3010; J7620